=== PATIENT | female | born 1970 | race Caucasian/White ===

== ENCOUNTER 2024-11-10 09:50 | Emergency (ER) | payer OTHER, SELFPAY ==
[2024-11-10 10:46] VITALS: BP 139/59; PULSE 77; RESP 77; TEMP 37.6; O2SAT 94; BMI 31.6
--- NOTE | 2024-11-10 10:46 | ED_ITS ---
Discharge Plan Disposition Patient Disposition: Home, Self-Care Condition: Good Prescriptions Prescriptions: New ondansetron 4 mg Tablet,Disintegrating 4 mg PO Q8H PRN (Reason: Nausea) Qty: 12 0RF No Action fluoxetine 40 mg capsule 40 mg PO DAILY Patient Comments: TAKE 1 CAPSULE BY MOUTH EVERY DAY sumatriptan succinate 50 mg tablet 50 mg PO DIRECTED Patient Comments: TAKE 1 TABLET (50 MG TOTAL) BY MOUTH ONCE NEEDED FOR MIGRAINE MAY REPEAT AFTER 2 HOURS.. metformin 1,000 mg tablet 1,000 mg PO DAILY Patient Comments: TAKE 1 TABLET TWICE A DAY BY ORAL ROUTE FOR 90 DAYS, FOR DIABETES. hydrochlorothiazide 12.5 mg capsule 12.5 mg PO DAILY Patient Comments: TAKE 1 CAPSULE BY MOUTH EVERY DAY FOR HIGH BLOOD PRESSURE albuterol sulfate 90 mcg/actuation HFA aerosol inhaler 90 mcg INHALATION DIRECTED Patient Comments: INHALE 2 PUFFS 4 TIMES EACH DAY fluticasone propionate 50 mcg/actuation spray,suspension 50 mcg INTRANASAL DIRECTED Patient Comments: SPRAY 1 TIME IN EACH NOSTRIL 1 TIME EACH DAY amoxicillin-pot clavulanate 875-125 mg tablet 875 tab PO DIRECTED Patient Comments: TAKE 1 TABLET EVERY 12 HOURS FOR 10 DAYS rosuvastatin 10 mg tablet 10 mg PO DAILY Patient Comments: TAKE 1 TABLET EVERY DAY BY ORAL ROUTE, FOR HIGH CHOLESTROL. bupropion HCl 150 mg tablet extended release 24 hr 150 mg PO DAILY Patient Comments: TAKE 1 TABLET EVERY DAY BY ORAL ROUTE, FOR DEPRESSION. Jardiance 10 mg tablet 10 mg PO DAILY Patient Comments: TAKE 1 TABLET EVERY DAY BY ORAL ROUTE, FOR DIABETES. Referrals Follow up/Referrals: Provider,Referral, MD [Primary Care Provider] - See instructions Activity Restrictions/Add. Instructions Additional Instructions/Restrictions: Drink plenty of fluids. Take tylenol or ibuprofen for pain or fever. Continue the medications that you are on already. Follow up with your regular doctor. GO TO THE ER FOR ANY WORSENING SYMPTOMS We will culture the urine. That will tell what bacteria is causing your infection and which antibiotics will treat it best.This test takes 3 days to complete. Clinical Impressions Clinical Impression: Acute viral syndrome, UTI (urinary tract infection) Instructions Patient Instructions: Urine Culture, DI for Viral Syndrome Print Language Print Language: Ethiopian Discharge ED Provider: Junior Cooper [facility] [place] General Stated complaint: Fever, body aches, H/A, vomiting, blood in urine, Time Seen by Provider: 11/10/24 10:42 Related Data Home Medications ?Medication ?Instructions ?Recorded ?Confirmed albuterol sulfate 90 mcg/actuation 90 mcg inhalation DIRECTED 11/10/24 11/10/24 aerosol inhaler amoxicillin 875 mg-potassium 875 tab PO DIRECTED 11/10/24 11/10/24 clavulanate 125 mg tablet bupropion HCl 150 mg 24 hr tablet, 150 mg PO DAILY 11/10/24 11/10/24 extended release empagliflozin 10 mg tablet 10 mg PO DAILY 11/10/24 11/10/24 (Jardiance) fluoxetine 40 mg capsule 40 mg PO DAILY 11/10/24 11/10/24 fluticasone propionate 50 50 mcg intranasal DIRECTED 11/10/24 11/10/24 mcg/actuation nasal spray,suspension hydrochlorothiazide 12.5 mg capsule 12.5 mg PO DAILY 11/10/24 11/10/24 metformin 1,000 mg tablet 1,000 mg PO DAILY 11/10/24 11/10/24 rosuvastatin 10 mg tablet 10 mg PO DAILY 11/10/24 11/10/24 sumatriptan succinate 50 mg tablet 50 mg PO DIRECTED 11/10/24 11/10/24 Previous Rx's ?Medication ?Instructions ?Recorded ondansetron 4 mg disintegrating 4 mg PO Q8H PRN Nausea #12 tabs 11/10/24 tablet Allergies Allergy/AdvReac Type Severity Reaction Status Date / Time No Known Allergies Allergy Verified 11/10/24 10:49 [facility] Disclaimer: The information contained in this section may have been updated after the patient was seen, as this information can be updated by other users. Medical History (Updated 11/10/24 @ 11:46 by Junior Cooper APRN) UTI (urinary tract infection) Anxiety Diabetes Asthma Hyperlipemia Hypertension Social History Smoking Status: Never smoker alcohol intake: never current occupational status: employed Travel in the last 8 weeks: None ROS Obtained: Yes All systems reviewed & no additional complaints except as documented Constitutional Constitutional: Reports system reviewed and no additional complaints, except as documented, Denies chills and Denies fever(s) Eyes Eyes: Denies eye discharge ENT Ears, Nose, Mouth, and Throat: Denies dysphagia, Denies sore throat and Denies throat swelling Cardiovascular Cardiovascular: Denies chest pain and Denies dyspnea Respiratory Respiratory: Denies chest congestion, Denies cough and Denies dyspnea Gastrointestinal Gastrointestingal: Denies abdominal pain, constipation, diarrhea, dysphagia, nausea or vomiting Genitourinary Female Genitourinary: Reports as per HPI, Reports dysuria, Reports sexual dysfunction, Reports urinary frequency, Denies urinary incontinence and Reports urinary hesitancy Musculoskeletal Musculoskeletal: Denies arthralgias and Reports back pain Integumentary/Breasts Skin/Breast: Denies rash Neurologic Neurologic: Denies paresthesias Allergic/Immunologic Allergic/Immunologic: Denies throat swelling Physical Exam General General appearance: alert and in no apparent distress Head Head exam: atraumatic and normocephalic Eye Eye exam: Present normal appearance, PERRL and EOMI ENT ENT exam: Present normal exam, mucous membranes moist, TM's normal bilaterally and normal external ear exam Neck Neck exam: Present normal inspection, full ROM and trachea midline; Absent tenderness, meningismus or lymphadenopathy Chest Chest inspection: Present normal inspection and symmetric chest wall rise; Absent tenderness Respiratory Respiratory exam: Present normal lung sounds bilaterally; Absent respiratory distress, wheezes or stridor Cardiovascular Cardiovascular exam: Present regular rate, normal rhythm and normal heart sounds Abdominal Exam Abdominal exam: Present soft and normal bowel sounds; Absent distention, tenderness, guarding, rebound, rigidity, incision, psoas sign, obturator sign, heel tap sign, Trujillo's sign, Rovsing's sign or tenderness at McBurney's Point Extremities Exam Extremities exam: Present normal inspection, full ROM and normal capillary refill; Absent tenderness, edema, joint swelling, calf tenderness or cyanosis Back Exam Back exam: Present normal inspection and full ROM; Absent tenderness, CVA tenderness (R) or CVA tenderness (L) Neurological Exam Neurological exam: Present alert, oriented X3 and normal gait Psychiatric Psychiatric exam: Present normal affect and normal mood Skin Skin exam: Present warm, dry, intact and normal color Lymphatic Lymphatic Findings: no adenopathy Medical Decision Making Medical Records Medical records reviewed: No I reviewed the patient's medical records. Screening: Per USPSTF and CDC recommendations, given the prevalence of disease in our region, it is our hospital?s policy to screen for HIV and viral Hepatitis for all patients aged 18 and over and those with ongoing risk factors. Rich Inquiry Pt receiving controlled substance: No
[2024-11-10 10:54] LABS: Apearance,Urine Clear (Clear); Color,Urine Yellow (Yellow); PH,Urine 5.5 (5.0-8.5); Specific Gravity, Urine 1.015 (1.005-1.030)
[2024-11-10 10:55] LABS: Bilirubin,Urine Negative (Negative); Blood, Urine 1+ (Negative); Glucose,Urine (UA) 1000 (Negative); Ketones,Urine 40 (Negative); Protein,Urine 3+ (Negative); UTC Leukocyte Esterase,Urine Negative (Negative); UTC Nitrate,Urine Negative (Negative); Urobilinogen,Urine 0.2 EU/dl (0.2)
[2024-11-10 11:00] LABS: UTC Influenza A Antigen Negative (Negative); UTC Influenza B Antigen Negative (Negative)
--- NOTE | 2024-11-10 11:47 | ED_ITS ---
Discharge Plan Disposition Patient Disposition: Home, Self-Care Condition: Good Prescriptions Prescriptions: New ondansetron 4 mg Tablet,Disintegrating 4 mg PO Q8H PRN (Reason: Nausea) Qty: 12 0RF No Action fluoxetine 40 mg capsule 40 mg PO DAILY Patient Comments: TAKE 1 CAPSULE BY MOUTH EVERY DAY sumatriptan succinate 50 mg tablet 50 mg PO DIRECTED Patient Comments: TAKE 1 TABLET (50 MG TOTAL) BY MOUTH ONCE NEEDED FOR MIGRAINE MAY REPEAT AFTER 2 HOURS.. metformin 1,000 mg tablet 1,000 mg PO DAILY Patient Comments: TAKE 1 TABLET TWICE A DAY BY ORAL ROUTE FOR 90 DAYS, FOR DIABETES. hydrochlorothiazide 12.5 mg capsule 12.5 mg PO DAILY Patient Comments: TAKE 1 CAPSULE BY MOUTH EVERY DAY FOR HIGH BLOOD PRESSURE albuterol sulfate 90 mcg/actuation HFA aerosol inhaler 90 mcg INHALATION DIRECTED Patient Comments: INHALE 2 PUFFS 4 TIMES EACH DAY fluticasone propionate 50 mcg/actuation spray,suspension 50 mcg INTRANASAL DIRECTED Patient Comments: SPRAY 1 TIME IN EACH NOSTRIL 1 TIME EACH DAY amoxicillin-pot clavulanate 875-125 mg tablet 875 tab PO DIRECTED Patient Comments: TAKE 1 TABLET EVERY 12 HOURS FOR 10 DAYS rosuvastatin 10 mg tablet 10 mg PO DAILY Patient Comments: TAKE 1 TABLET EVERY DAY BY ORAL ROUTE, FOR HIGH CHOLESTROL. bupropion HCl 150 mg tablet extended release 24 hr 150 mg PO DAILY Patient Comments: TAKE 1 TABLET EVERY DAY BY ORAL ROUTE, FOR DEPRESSION. Jardiance 10 mg tablet 10 mg PO DAILY Patient Comments: TAKE 1 TABLET EVERY DAY BY ORAL ROUTE, FOR DIABETES. Referrals Follow up/Referrals: Provider,Referral, MD [Primary Care Provider] - See instructions Activity Restrictions/Add. Instructions Additional Instructions/Restrictions: Drink plenty of fluids. Take tylenol or ibuprofen for pain or fever. Continue the medications that you are on already. Follow up with your regular doctor. GO TO THE ER FOR ANY WORSENING SYMPTOMS We will culture the urine. That will tell what bacteria is causing your infection and which antibiotics will treat it best.This test takes 3 days to complete. Clinical Impressions Clinical Impression: Acute viral syndrome, UTI (urinary tract infection) Instructions Patient Instructions: Urine Culture, DI for Viral Syndrome Print Language Print Language: Hong Konger Discharge ED Provider: Junior Cooper [facility] [place] HPI General Stated complaint: Fever, body aches, H/A, vomiting, blood in urine, Mode of Arrival: Ambulatory Source of Information: Patient Time Seen by Provider: 11/10/24 10:42 Description of Symptoms (Recalled from Triage Doc. by RN): COLD, FLU, BLOOD IN URINE HEENT Symptoms (Recalled from RN notes): No Resp Symptoms (Recalled from RN notes): Yes Skin Symptoms (Recalled from RN notes): No MS Symptoms (Recalled from RN notes): No Functional Status (Recalled from RN notes): WNL Related Data Home Medications ?Medication ?Instructions ?Recorded ?Confirmed albuterol sulfate 90 mcg/actuation 90 mcg inhalation DIRECTED 11/10/24 11/10/24 aerosol inhaler amoxicillin 875 mg-potassium 875 tab PO DIRECTED 11/10/24 11/10/24 clavulanate 125 mg tablet bupropion HCl 150 mg 24 hr tablet, 150 mg PO DAILY 11/10/24 11/10/24 extended release empagliflozin 10 mg tablet 10 mg PO DAILY 11/10/24 11/10/24 (Jardiance) fluoxetine 40 mg capsule 40 mg PO DAILY 11/10/24 11/10/24 fluticasone propionate 50 50 mcg intranasal DIRECTED 11/10/24 11/10/24 mcg/actuation nasal spray,suspension hydrochlorothiazide 12.5 mg capsule 12.5 mg PO DAILY 11/10/24 11/10/24 metformin 1,000 mg tablet 1,000 mg PO DAILY 11/10/24 11/10/24 rosuvastatin 10 mg tablet 10 mg PO DAILY 11/10/24 11/10/24 sumatriptan succinate 50 mg tablet 50 mg PO DIRECTED 11/10/24 11/10/24 Previous Rx's ?Medication ?Instructions ?Recorded ondansetron 4 mg disintegrating 4 mg PO Q8H PRN Nausea #12 tabs 11/10/24 tablet Allergies Allergy/AdvReac Type Severity Reaction Status Date / Time No Known Allergies Allergy Verified 11/10/24 10:49 Worker's Comp Is this a Worker's Comp case?: No [facility] Disclaimer: The information contained in this section may have been updated after the patient was seen, as this information can be updated by other users. Medical History (Updated 11/10/24 @ 11:46 by Junior Cooper APRN) UTI (urinary tract infection) Anxiety Diabetes Asthma Hyperlipemia Hypertension Social History (Updated 11/12/24 @ 09:11 by Junior Cooper APRN) Smoking Status: Never smoker alcohol intake: never current occupational status: employed Travel in the last 8 weeks: None Have you lived/traveled outside [place] in past 30 days?: No Contact w/someone who lives/traveled outside [place] past 30 days?: No Exposure to someone with infectious disease in past 14 days?: No Do you have a fever (greater than 100.4 F or 38 C)?: No Have you tested positive for COVID-19: No Exposed to someone with COVID-19 in past 14 days?: No Do you have a sore throat?: No Do you have a cough?: No Do you have any weakness?: Yes Do you have any diarrhea?: No Are you experiencing any unusual bleeding?: Yes Do you have any muscle aches/pain?: Yes Do you have any abdominal pain?: No Are you experiencing loss of taste or smell?: No ROS Obtained: Yes All systems reviewed & no additional complaints except as documented Constitutional Constitutional: Denies chills, Denies fever(s) and Reports poor appetite ENT Ears, Nose, Mouth, and Throat: Denies dizziness and Denies sore throat Cardiovascular Cardiovascular: Denies dyspnea Respiratory Respiratory: Denies chest congestion, Denies cough and Denies dyspnea Gastrointestinal Gastrointestingal: Reports as per HPI Genitourinary Female Genitourinary: Denies difficulty voiding, Denies dysuria, Denies hematuria, Reports urinary frequency, Denies urinary incontinence, Denies urinary hesitancy, Denies urinary urgency and Reports vaginal discharge Musculoskeletal Musculoskeletal: Denies arthralgias Integumentary/Breasts Skin/Breast: Denies rash Neurologic Neurologic: Denies dizziness Physical Exam General General appearance: alert and in no apparent distress Head Head exam: atraumatic, normocephalic and normal inspection Eye Eye exam: Present normal appearance, PERRL and EOMI ENT ENT exam: Present normal exam, normal oropharynx, mucous membranes moist, TM's normal bilaterally and normal external ear exam Neck Neck exam: Present normal inspection, full ROM and trachea midline; Absent men ingismus or lymphadenopathy Chest Chest inspection: Present normal inspection and symmetric chest wall rise; Absent tenderness Respiratory Respiratory exam: Present normal lung sounds bilaterally; Absent respiratory distress Cardiovascular Cardiovascular exam: Present regular rate and normal rhythm; Absent JVD Abdominal Exam Abdominal exam: Present soft and normal bowel sounds; Absent distention, tend erness or guarding Extremities Exam Extremities exam: Present normal inspection, full ROM and normal capillary refill; Absent calf tenderness Back Exam Back exam: Present normal inspection; Absent tenderness Neurological Exam Neurological exam: Present alert and oriented X3 Psychiatric Psychiatric exam: Present normal affect and normal mood Skin Skin exam: Present warm, dry, intact and normal color Lymphatic Lymphatic Findings: no adenopathy Medical Decision Making Medical Records Medical records reviewed: No I reviewed the patient's medical records. Screening: Per USPSTF and CDC recommendations, given the prevalence of disease in our region, it is our hospital?s policy to screen for HIV and viral Hepatitis for all patients aged 18 and over and those with ongoing risk factors. Rich Inquiry Pt receiving controlled substance: No Vital Signs: 11/10/24 10:46 Temperature 99.7 F H Temperature Source Oral Pulse Rate [Left Radial] 77 Respiratory Rate 77 H Blood Pressure [Left Arm] 139/59 L Blood Pressure Mean [Left Arm] 85 02 Sat by Pulse Oximetry 94 L Lab Data Lab results reviewed: Yes I reviewed the patient's lab results. Lab Results 11/10/24 10:47: Influenza Type A Ag Negative, Influenza Type B Ag Negative 11/10/24 10:53: Urine Color Yellow, Urine Appearance Clear, Urine pH 5.5, Ur Specific Morrison 1.015, Urine Protein 3+, Urine Glucose (UA) 1000, Urine Ketones 40, Urine Blood 1+, Urine Nitrate Negative, Urine Bilirubin Negative, Urine Urobilinogen 0.2, Ur Leukocyte Esterase Negative Orders (Tests/Meds): ORDERS Category Date Time Status Rapid PCR Covid and Flu A/B Stat Lab 11/10/24 11:43 Ordered Urine Culture Stat Micro 11/10/24 10:41 Received
[2024-11-10 11:57] VITALS: BP 139/59; PULSE 77; RESP 20; TEMP 37.6
[2024-11-10 11:59] LABS: Coronavirus 19, PCR Not Detected (NotDetected); Influenza A, PCR Not Detected (NotDetected); Influenza B, PCR Not Detected (NotDetected)
== END 2024-11-10 11:57 | disposition home or self-care (01) ==
PROVIDERS: Emergency Provider Nurse Practitioner Family
DX: N39.0 Urinary tract infection, site not specified (principal); B34.9 Viral infection, unspecified; R50.9 Fever, unspecified; M79.10 Myalgia, unspecified site; R51.9 Headache, unspecified; R11.2 Nausea with vomiting, unspecified; R31.9 Hematuria, unspecified; R30.0 Dysuria; R35.0 Frequency of micturition
CPT/HCPCS: 81003; 87086; 87636; 87804; 99212; G0381